=== PATIENT | male | born 1965 | race African-American/Black ===

== ENCOUNTER 2020-05-26 09:37 | Emergency (ER) | payer OTHER ==
[~2020-05-26] VITALS: Ht 172.7 cm; Wt 74.8 kg
[2020-05-26 10:45] LABS: ABSOLUTE NEUTROPHILS 6.4 thou/uL (1.4-8.2); BASOPHILS 0.5 % (0.0-2.0); EOSINOPHILS 2.5 % (0.0-3.0); HEMATOCRIT 41.3 % (42.0-52.0); HEMOGLOBIN 13.8 gm/dL (14.0-18.0); LYMPHOCYTES 20.9 % (24.0-44.0); MCH 33.5 pg (26.0-34.0); MCHC 33.5 g/dL (28.0-37.0); MCV 100.1 fL (80.0-100.0); PLATELET COUNT 243 thou/uL (150-400); POLYS 69.1 % (36.0-66.0); RBC 4.13 mil/uL (4.50-6.00); RDW 13.1 % (10.5-14.5); WBC 9.3 thou/uL (4.0-11.0)
[2020-05-26 10:56] LABS: CALCIUM 9.3 mg/dL (8.5-10.1); POTASSIUM 4.2 mmol/L (3.5-5.1)
[2020-05-26 11:04] LABS: ALBUMIN 3.8 g/dL (3.4-5.0); TOTAL BILIRUBIN 0.8 mg/dL (0.2-1.0); TOTAL PROTEIN 7.5 g/dL (6.4-8.2)
[2020-05-26 13:11] LABS: URINE BILIRUBIN NEGATIVE (Negative); URINE BLOOD NEGATIVE (Negative); URINE CLARITY CLEAR; URINE COLOR YELLOW; URINE GLUCOSE-RANDOM* NEGATIVE (Negative); URINE KETONES NEGATIVE (Negative); URINE LEUKOCYTES-REFLEX NEGATIVE (Negative); URINE NITRITE-REFLEX NEGATIVE (Negative); URINE PROTEIN (DIPSTICK) NEGATIVE (Negative); URINE UROBILINOGEN 0.2 E.U./dl (0.2-1.0)
[2020-05-26 14:17] VITALS: BP 105/55
== END 2020-05-26 14:18 | disposition home or self-care (01) ==
LOC: ER 09:37
PROVIDERS: Emergency Medicine
DX: K59.00 Constipation, unspecified (principal); F17.210 Nicotine dependence, cigarettes, uncomplicated

== ENCOUNTER → 2020-08-09 | Outpatient (CLI) | payer OTHER | LOC: LAB 10:59 | PROVIDERS: ATTEND Specialist | DX: Z20.828 Contact with and (suspected) exposure to other viral communicable diseases (principal) ==

== ENCOUNTER → 2020-08-11 | Outpatient (CLI) | payer OTHER ==
[~2020-08-11] VITALS: Ht 172.7 cm; Wt 73.0 kg
--- NOTE | 2020-08-13 14:29 | P ---
[facility] [place] [address] PROCEDURE REPORT Name: ISAIAH PRITCHARD [id number] Admission: 08/11/20 Attend Phys: Emiliano Fernandez Discharge: Date of : 67 Report #: [id number] THIS REPORT FOR: cc: FAM - No family physician/PCP FAM - Family physician unknown Emiliano Villagomez MD ~ DATE OF SERVICE: 08/11/2020 PROCEDURE PERFORMED: Upper endoscopy with biopsies. HISTORY OF PRESENT ILLNESS: The patient is a 55-year-old male with a history of intermittent nausea, vomiting, hematemesis. Reportedly, he had a possible diagnosis of an ulcer as a child. He has not taken any NSAIDs. He does report weight loss of approximately 17 pounds over the last few months. He denies any melanotic stools currently. No previous history of colonoscopy. No family history of colon cancer. DESCRIPTION OF PROCEDURE: The risks and benefits of the procedure were explained to the patient, those risks including but not limited to bleeding, perforation and the risk of sedation. He understood these risks and gave informed consent. Sedation was given using propofol per anesthesia. Next, using a standard Olympus upper endoscope, the scope was placed in the patient's mouth and advanced under direct vision through the esophagus, stomach, and into the second portion of the duodenum. The esophagus was normal throughout. The GE junction was normal. There was some mild gastritis noted in the body of the stomach. No evidence of ulcerations or erosions. No evidence of bleeding was noted. Biopsies were obtained to rule out H. pylori. The pylorus was normal and patent. The duodenal bulb, first and second portion were all normal. The scope was then withdrawn and the procedure terminated. The patient tolerated the procedure well. IMPRESSION: 1. Gastritis. No evidence of bleeding. 2. Otherwise, normal upper endoscopy. RECOMMENDATIONS: 1. Await biopsy results. 2. Recommend daily PPI therapy trial. 3. Consider the possibility of intermittent nausea and vomiting causing a Valerie-Ruelas tear, which is now healed. Again, would recommend PPI therapy to see if this is beneficial. 4. The patient needs routine screening colonoscopy at some point. [facility] [address] [place] [address] PROCEDURE REPORT Name: ISAIAH PRITCHARD Melani Room #: REG Tiny Chau#: [id number] Admission: 08/11/20 Attend Phys: Emiliano Fernandez Discharge: Date of : 67 Report #: [id number] Thank you for allowing me to participate in his care. <ELECTRONICALLY SIGNED> By: Emiliano Villagomez MD 08/13/20 1429 1053 09 Emiliano Villagomez MD /nt
--- NOTE | 2020-08-15 17:06 | PATH ---
[facility] [address] [place] [address] PATHOLOGY RPT PROCEDURE Name: ISAIAH PRITCHARD Melani Room #: REG [facility] Glo.#: [id number] Admission: 08/11/20 Date of : 67 Discharge: Report #: [id number] Path Case #: [id number] [facility] Accession Number: [id number] . 01 Material submitted: . stomach - BIOPSY GASTRITIS . 01 Clinical history: . VOMITING BLOOD, GASTRITIS . 02 Diagnosis: Gastric mucosa, gastritis R/O H. pylori, endoscopic biopsy: - Mild reactive gastropathy. - Negative for intestinal metaplasia or atrophy. - Negative for Helicobacter pylori (properly controlled immunohistochemical stain performed). (IUV:konstantin; 08/15/2020) QMS 08/15/2020 1300 Local . 02 Electronically signed: . Jessica Okeefe MD, Pathologist NPI- [id number] . 01 Gross description: . The specimen is received in formalin, labeled "Tobi, Vincent, BX gastritis" and consists of 4 fragments of pink-callaway tissue measuring between 0.3 x 0.2 cm and 0.7 x 0.2 cm which are entirely submitted in A1. (SDY; 08/14/2020) SYU/SYU 08/14/2020 1334 Local . 02 Pathologist provided ICD-10: K31.9 . 02 CPT . 252773, E87052 Specimen Comment: A courtesy copy of this report has been sent to [phone] Specimen Comment: Report sent to Performed at: [address], [place], [place] [id number] MD Saúl Do MD Phone: [phone] Performed at: [address] [id number] MD Jessica Okeefe MD Phone: [phone]
== END | disposition home or self-care (01) ==
LOC: GI 08:24
PROVIDERS: ATTEND Specialist
DX: R11.2 Nausea with vomiting, unspecified (principal); R63.4 Abnormal weight loss; K31.9 Disease of stomach and duodenum, unspecified; K29.70 Gastritis, unspecified, without bleeding; F17.210 Nicotine dependence, cigarettes, uncomplicated; Z98.890 Other specified postprocedural states; Z79.899 Other long term (current) drug therapy; Z85.46 Personal history of malignant neoplasm of prostate
CPT/HCPCS: 62110; 62900

== ENCOUNTER 2020-10-05 01:13 | Inpatient (IN) | payer OTHER ==
[~2020-10-05] VITALS: Ht 172.7 cm; Wt 70.0 kg
[2020-10-05] VITALS (22 sets, daily range): BP systolic 97–137; BP diastolic 51–117
--- NOTE | 2020-10-05 01:35 | NUR ---
I WAS IN THE ROOM WHEN DR NULL WAS ASSESSING PATIENT. HE SAID "THE VOICES ARE TELLING ME I HAVE TO KILL EVERYONE AND EVERYTHING." WHEN ASKED IF HE WOULD DO WHAT THE VOICES TOLD HIM TO DO, HE SAID "I HAVE TO BECAUSE THE VOICES ARE TELLING ME TO DO IT." NURSE ASSIGNED TO PATIENT AND NURSING ELEVATED WORK PLATFORM OPERATOR LYNDA WAS NOTIFIED OF ABOVE.
[2020-10-05 02:05] LABS: ABSOLUTE NEUTROPHILS 4.6 thou/uL (1.4-8.2); BASOPHILS 0.6 % (0.0-2.0); EOSINOPHILS 2.5 % (0.0-3.0); HEMATOCRIT 41.6 % (42.0-52.0); MCH 33.8 pg (26.0-34.0); MCHC 33.5 g/dL (28.0-37.0); MCV 100.9 fL (80.0-100.0); PLATELET COUNT 297 thou/uL (150-400); POLYS 69.9 % (36.0-66.0); RBC 4.13 mil/uL (4.50-6.00); RDW 12.8 % (10.5-14.5); WBC 6.5 thou/uL (4.0-11.0)
[2020-10-05 02:24] LABS: ANION GAP 13 mmol/L (7-16); BUN 12 mg/dL (7-18); CALCIUM 8.7 mg/dL (8.5-10.1); CHLORIDE 100 mmol/L (98-107); CO2 25 mmol/L (21-32); GLUCOSE 100 mg/dL (74-106); POTASSIUM 3.8 mmol/L (3.5-5.1); SODIUM 138 mmol/L (136-145)
[2020-10-05 02:27] LABS: ALBUMIN 3.8 g/dL (3.4-5.0); DIRECT BILIRUBIN < 0.1 mg/dL (<0.1-0.2); SALICYLATE 3.7 mg/dL (2.8-20.0); SGOT 45 U/L (15-37); SGPT 109 U/L (16-63); TOTAL BILIRUBIN 0.6 mg/dL (0.2-1.0); TOTAL PROTEIN 7.8 g/dL (6.4-8.2)
[2020-10-05 02:28] LABS: AMP/METHAMP Negative (Negative); BARBITURATES Negative (Negative); BENZODIAZEPINES Negative (Negative); COCAINE POSITIVE (Negative); METHADONE Negative (Negative); OPIATES Negative (Negative); PCP Negative (Negative)
--- NOTE | 2020-10-05 04:20 | NUR ---
0325 PT ARRIVED FROM ER VIA CART. PT CONNECTED TO ICU MONITOR AND ASSESSED PER ICU PROTOCOL. RAW FINISH MILL OPERATOR RONDA AT BEDSIDE. PT REPORTS ACTIVELY WANTING TO HARM HIMSELF. SI 1:1 SITTER IN ROOM WITH PT. ROOM STRIPPED OF ALL UNNECESSARY ITEMS. SEIZURE PRECAUTIONS IN PLACE. 0339 [place] POISON CONTROL CALLED AND WERE UPDATED ON PTS CONDITION AND VITAL SIGNS.
--- NOTE | 2020-10-05 07:25 | EKG ---
[address] [address] ELECTROCARDIOGRAM REPORT Name: ISAIAH PRITCHARD Room #: 242-P ADM IN M.R.#: [id number] Admission: 10/05/20 Attend Phys: Isabelle Maguire Discharge: Date of : 67 Report #: [id number] [facility] ED Test Date: 2020-10-05 Test Time: 01:43:29 Pat Name: ISAIAH PRITCHARD Department: Room: 242 Gender: M Customer Project Manager: MELANIE : 1965 Requested By: Dorothy Day Order Number: [id number] MD: Ashtuosh Vick Measurements Intervals [place] Rate: 75 P: 66 MA: 157 QRS: 6 QRSD: 97 T: 33 QT: 417 QTc: 466 Interpretive Statements Sinus rhythm No previous ECG available for comparison Electronically Signed On 10-05-2020 7:25:25 ANODE WORKER by Ashutosh Vick [email or web address] <ELECTRONICALLY SIGNED> By: Ashutosh Vick MD, [facility] 10/05/20 0725 0143 0143 Ashutosh Vick MD, FACC /EPI
--- NOTE | 2020-10-05 10:38 | NUR ---
chart review, pt has sitter in room. unable to visit with catalina. per chart he has been to [facility] for tx, and home only for 2 weeks before coming here. cm called and spoke with his gian # [phone], she reported " he had addiction for 30 years. only at [facility] for week, and home for couple of weeks then found him. hx drug and alcohol abuse. 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 he independent. manage his medication but the he just took all them from her and took them. just saw pcp for 1st time last week at [facility] Cotton. no dme, still drives. wanting him to go inpt tx again, i was told you will send him for tx"/ gian. dr carlos consult. will cont following as needed for dc needs.
[2020-10-05] MEDS ORDERED: WELLBUTRIN XL150 MG PO (11:49)
[2020-10-05] MEDS ORDERED: OMEPRAZOLE 20 M20 M1 PO (11:50)
[2020-10-05] MEDS ORDERED: ZYPREXA7.5 MG PO (11:50)
--- NOTE | 2020-10-05 16:33 | NUR ---
3050 SPOKE W/ NEHEMIAH. UPDATED ON PT STATUS. STATED SHE'D LIKE TO BE UPDATED BY A PHYSICIAN WHEN POSSILE REGARDING PLAN FOR PATIENT.
--- NOTE | 2020-10-05 19:16 | NUR ---
assumed care of pt 0700. pt awake and oritented. no complaints of pain. awaiting evaluation from Dr. Barraza. no bm. vss. regular diet. denied any suicidal ideation when asked today.
--- NOTE | 2020-10-05 23:38 | NUR ---
ASSUMED PT CARE AT 1900. VSS. PT A&0X4. SPOKE TO PT, ASKED HIM WHY HE TRIED TO COMMIT SUCIDE, PT STATED HE HAS PROSTATE CA, AND GOING THROUGH RADIATION SEVRAL TIMES A WEEK, HIS WEDDING ANNIVERSARY IS COMING UP AND HE IS DISAPOINTED HE WOULDNT NOT BE BALE TO MAKE LOVE TO HIS BECAUSE OF HIS PROSTATE ISSUES. CALLED AT 2216, UPDATED BY RN ON PT'S STATUS. PT IS STABLE, WILL CONTINUE TO MONITOR PER POC.
[2020-10-06] VITALS (22 sets, daily range): BP systolic 86–123; BP diastolic 24–85
[2020-10-06 05:34] LABS: ABSOLUTE NEUTROPHILS 3.8 thou/uL (1.4-8.2); BASOPHILS 0.4 % (0.0-2.0); EOSINOPHILS 5.1 % (0.0-3.0); HEMATOCRIT 40.8 % (42.0-52.0); HEMOGLOBIN 13.5 gm/dL (14.0-18.0); LYMPHOCYTES 19.1 % (24.0-44.0); MCH 33.5 pg (26.0-34.0); MCV 101.6 fL (80.0-100.0); MONOCYTES 7.9 % (1.0-8.0); PLATELET COUNT 250 thou/uL (150-400); POLYS 67.5 % (36.0-66.0); RBC 4.02 mil/uL (4.50-6.00); RDW 13.2 % (10.5-14.5); WBC 5.6 thou/uL (4.0-11.0)
--- NOTE | 2020-10-06 13:33 | NUR ---
PT CALM AND COOPERATIVE THIS AM. HE REPORTS THAT HE IS HEARING VOICES TODAY. PT STATES HE IS AGREEABLE TO GOING BACK TO [place] ON DISCHARGE VOLUNTARILY. PER DR FISHER'S NOTE PT OK TO SPEAK WITH ON PHONE. PHONE GIVEN TO PATIENT AND PT CONVERSING WITH HIS .
--- NOTE | 2020-10-06 13:57 | NUR ---
cm visited with pt at bedside, cont to wear face mask and shield during visit. education on inpt pysch, he stated " just ready to get out of here but guess [facility] will be ok, since i already know some of the nurses there"/catalina. cm spoke with eulalia chiu and faxed referral. will cont following as needed for dc needs. gian notified as well and agrees with dcp. " would like to know if any place give tx more that 7 days and then dc pt?"/ gian.
--- NOTE | 2020-10-06 18:38 | NUR ---
PT AGREEABLE WITH PLAN OF INPATIENT PSYCH WHEN BED AVAILABLE. SPOKE WITH PT'S AND UPDATED HER X5 TODAY. PT IS TEARFUL AND STATES HE IS ANGRY BC HE CANT GO HOME BUT UNDERSTANDS WHY. PLAN FOR TRANSFER TO TELE BED WHEN ROOM AVAILABLE. WILL CONTINUE TO MONITOR PT.
--- NOTE | 2020-10-06 19:31 | NUR ---
REPORT CALLED TO JERRY KOO 4W. PT TO TRANSFER TO 462. PT'S INFORMED OF TRANSFER.
[2020-10-07 10:57] VITALS: BP 107/75
[2020-10-07 15:51] VITALS: BP 103/71
[2020-10-07 19:08] VITALS: BP 110/70
--- NOTE | 2020-10-07 19:09 | NUR ---
Assmed pt care this am, VS stable on SI precuations 1:1 sitter at the bedside. POC followed with no signs or verbalizations of distress noted, had several calls from the . No voices were hear as of this shift, endorsed to the night nurse.
--- NOTE | 2020-10-08 01:59 | NUR ---
VSS-AFEBRILE. 1:[address] THROUGH NIGHT. DENIES HAVING FEELINGS OF HURTING SELF OR OTHERS AT THIS TIME. DENIES HAVING ANY AUDITORY OR VISUAL HALLUCINATIONS. RESTED WELL. CALLS APPROPRIATELY FOR ANY NEEDED ASSISTANCE.
[2020-10-08 05:17] VITALS: BP 99/61
--- NOTE | 2020-10-08 14:54 | NUR ---
ASSUMED CARE OF PATIENT AT 0700. ASSESSMENT CHARTED. MEDS ADMINISTERED PER EMAR. VSS. 1:[address] AT ALL TIMES. PATIENT IS A&OX4 AND COMMUNICATES NEEDS. NO VA/PA/SI/HI OBSERVED OR VOICED FROM PATIENT. SPOUSE CALLED MULTIPLE TIMES. PATIENT WAS GIVEN A PHONE TO SPEAK W HER BUT DECLINED TO SPEAK. PATIENT ASLEEP AND WATCHING TV MOST OF SHIFT. NO SEIZURE ACTIVITY NOTED. PATIENT VERBALIZED NO OTHER NEEDS. WILL CONTINUE TO MONITOR AND FOLLOW PLAN OF CARE.
[2020-10-08 19:14] VITALS: BP 119/72
[2020-10-09 03:51] VITALS: BP 113/80
--- NOTE | 2020-10-09 04:37 | NUR ---
ASSUMED CARE OF PT AT 1900HRS. PT IS AOX4 AND LETS NEEDS BE KNOWN. FALL PRECAUTION IN PLACE. 1:[address] FOR SI/HI. PT DENIED PAIN, NAUSEA, SOA, AND SI THIS SHIFT. PT DID MENTION THAT HE WANTS TO HURT FOR TALKING TO HIS . ASSESSMENT CHARTED. PT RAN SR ON TELE. PT WAS ABLE OT GET COMFORTABLE AND SLEEP PART OF THE SHIFT. VSS AND NO S/S OF ACUTE DISTRESS. WILL CONTINUE TO MONITOR FOR CHANGES.
[2020-10-09 07:53] VITALS: BP 118/71
--- NOTE | 2020-10-09 15:16 | NUR ---
CM MET WITH PT AT BEDSIDE THIS DAY. PT APPEARED TO A&O X4. CM ROLE INTRODUCED. CM INDICATED THAT CARE TEAM ARE STILL RECOMMENDING INPATIENT PSYC PLACEMENT. PT INDICATED HE WAS STILL VOLUNTARY. CM CALLED THE FOLLOWING: [facility] [phone] SPOKE WITH ERIK IN ADMISSIONS FAXED CLINICAL INFOR FOR REVIEW [facility] [phone] AT [facility] [phone] SPOKE WITH SOMEONE IN ADMISSIONS FAXED REFERRAL OVER FOR REVIEW FOR POSSIBLE ADMISSION. [facility] [place] [phone] or [phone] CM CALLED [facility] AND LEFT NUMBER FOR CALL BACK [phone] WANT NEGATIVE PCR COVID TEST AND WANT HOSPITALIST TO DOCUMENT PT IS MEDICALLY STABLE TO DISCHARGE TO INPATIENT PSYC copy and call report to number giving from accepting [facility].
--- NOTE | 2020-10-09 15:57 | NUR ---
CM MET WITH PT AT BEDSIDE THIS DAY. PT APPEARED TO A&O X4. CM ROLE INTRODUCED. CM INDICATED THAT CARE TEAM ARE STILL RECOMMENDING INPATIENT PSYC PLACEMENT. PT INDICATED HE WAS STILL VOLUNTARY. CM CALLED THE FOLLOWING: [facility] [phone] SPOKE WITH ERIK IN ADMISSIONS FAXED CLINICAL INFO FOR REVIEW THEY CALLED BACK AND COMPLETED COVID SCREENING.INDICATED THEY DONE REQUIRE A COVID TEST. STATED NURSE WILL REVIEW AND MAY CALL BACK IF ACCEPTING. [facility] [place] [phone] AT [facility] [phone] SPOKE WITH SOMEONE IN ADMISSIONS FAXED REFERRAL OVER FOR REVIEW FOR POSSIBLE ADMISSION. [facility] [phone] or [phone] AT [facility], ONLY HAVE FEMALE [place] BEDS [phone] WANT NEGATIVE PCR COVID TEST AND WANT HOSPITALIST TO DOCUMENT PT IS MEDICALLY STABLE TO DISCHARGE TO INPATIENT PSYC copy and call report to number giving from accepting [facility]. CM NOTIFIED PT OF PROGRESS. CM COMPLETED [facility] FORM AND PLACE IN WALL WIND SITE MANAGER. CM REQUESTED CHART COPY AND NOTIFIED NURSE OF PROGRESS.
--- NOTE | 2020-10-09 19:37 | NUR ---
ASSUMED CARE OF PATIENT AT SHIFT NA. ASSESSMENT CHARTED. MEDS ADMINISTERED PER EMAR. VSS. PATIENT IS A&OX4 AND ABLE TO MAKES NEEDS KNOWN. NO BEHAVIORAL ISSUES; DENIES SI/HI. NO VA/PA NOTED. PATIENT CONTINUES TO HAVE A SITTER 1:1 AT ALL TIMES. PATIENT SPEAKING ON PHONE MULTIPLE TIMES. NEHEMIAH CALLED FOR UPDATES AND REQUEST TO SPEAK TO PATIENT MULTIPLE TIMES. PATIENT STEADY ON FEET; APPETITE ADEQUATE. BM TODAY. COVID TEST COMPLETE FOR PLACEMENT. SEE CM NOTES FOR INSTRUCTIONS ON TRANSPORT IN EVENT OF AFTER HOURS ACCEPTANCE. PATIENT VOICED NO FURTHER NEEDS. WILL ENDORSE TO NOC. JERRY.
[2020-10-09 21:00] VITALS: BP 100/62
--- NOTE | 2020-10-10 02:27 | NUR ---
PATIENT SLEPT EARLIER IN EVENING FOR ABOUT AN HOUR. HE THEN HAS BEEN UP AND WATCHING TV. HE HAS BEEN PLEASANT AND COOPERATIVE AND UPBEAT. PT DENIES SI/AVH. HE DOES STATE THERE IS ONE PERSON HE WOULD LIKE TO HURT BUT DID NOT SAY WHO. HE STATES HE WILL EVENTUALLY CALM DOWN BUT IT IS A PROCESS. HE IS AWAITING TRANSFER TO [facility] FOR FURTHER TREATMENT. PATIENT DOES NOT HAVE IV ACCESS AT THIS TIME. HE DOES HAVE REDDENED TENDER AREA AT LEFT ANTECUBITAL FROM OLD IV THAT WAS DC'D YESTERDAY. ICE NEYDA APPLIED TO AREA FOR COMFORT. PAIN WAS 4/5. RELIEF WITH ICE NEYDA. PATIENT'S LAST BM WAS 10/09/20. PATIENT APPEARS TO SLEEPING AT THIS TIME. HE FELL ASLEEP AT 0130. PT IS ORIENTED X 4. ASSESSMENT WNL. COVID PCR IS PENDING AT THIS TIME. 1:1 SITTER WITH PATIENT IN ROOM. BED IN LOW POSITION. FALL RISK MONITORING. URINAL AT BEDSIDE. CONTINUING TO MONITOR.
[2020-10-10 08:40] VITALS: BP 135/86
--- NOTE | 2020-10-10 14:31 | NUR ---
[facility] CALLED CM AT 1:34 AM AND INDICATED THAT THEY DIDN'T HAVE A BED OPEN TO ACCEPT PT AT THAT TIME. CARE TEAM ARE STILL RECOMMENDING INPATIENT PSYC PLACEMENT. PT INDICATED HE WAS STILL VOLUNTARY BUT IS GETTING TIRED OF BEING HERE. CM CALLED THE FOLLOWING: [facility] [phone] SPOKE WITH SOMEONE IN ADMISSIONS FAXED UPDATED CLINICAL INFO INCLUDING NEGATIVE COVID TEST FOR REVIEW THEY CALLED BACK AND COMPLETED COVID SCREENING.STATED NURSE WILL REVIEW AND MAY CALL BACK IF ACCEPTING. [facility] [place] [phone] CALLED AT 2:36 TAKING PT'S FROM WITH IN RIGHT NOW CAN TRY BACK LATER. [facility] [phone] 2:40 SPOKE WITH SOMEONE IN ADMISSIONS WHO SAID THEY HAD SOME HIGHER AQUITY BEDS OPEN AT THIS TIME. CM FAXED REFERRAL WITH UPDATES OVER FOR REVIEW FOR POSSIBLE ADMISSION. [facility] [place] [phone] or [phone] CALLED BED PAGER 2:[phone] CM FAXED CLINICAL WITH NEGATIVE PCR COVID TEST AND HOSPITALIST PROG NOTE FROM YESTERDAY INDICATING THAT PT IS MEDICALLY STABLE TO [place]. THEY WANT A NEW PROG NOTE FROM TODAY CM NOTIFIED PHYSICIAN NO PROG NOTE AT TIME OF THIS NOTE. THEY SENT OVER A RELEASE FOR PT TO SIGN TO LOOK REFERRAL OVER. CM HAD IT SIGNED BY PT. copy and call report to number giving from accepting [facility]. CM NOTIFIED PT OF PROGRESS. CM COMPLETED KCFD FORM AND PLACE IN WALL FULL DECATOR OPERATOR. CM REQUESTED CHART COPY AND NOTIFIED NURSE OF PROGRESS.
--- NOTE | 2020-10-10 17:02 | NUR ---
Patient complains of left arm , the area around and above the AC, was worse than yesterday, red, painful, swelling. Dr. Sawyer stated that he would give Tylenol for the pain, if it continued to become worse, he would have ultrasound.
--- NOTE | 2020-10-10 17:06 | NUR ---
The patient's Elba ([phone]) stated that the patient could have a place covered by her insurance, asking to talk to the "therapist", the one who is responsible looking for a place for the patient to go to. The staff told Ms. Pinedo ([phone]) about it.
--- NOTE | 2020-10-10 17:13 | NUR ---
Patient asked for medication for anxiety, Dr. Barraza paged, awaiting for response.
[2020-10-10 17:38] VITALS: BP 138/56
--- NOTE | 2020-10-10 18:03 | NUR ---
[facility] and Emar, Ms. Pinedo asked the staff to fax these two things to them. Fax number: [phone]; number: [phone].
--- NOTE | 2020-10-10 18:23 | NUR ---
The nurse asked people in different nursing station, nobody knows how to pring the emar and vital signs properly, the staff used "PrtScn", the letters were very small. The staff will pass it on to the night nurse. It might have to be done tomorrow.
[2020-10-10 20:03] VITALS: BP 119/82
--- NOTE | 2020-10-10 23:17 | NUR ---
EMAR and vital signs faxed over to [facility]. Verified that fax was received with Julee whom stated they would get orders for patient and most likely accept, but that there would not be a bed available until tomorrow afternoon. Will pass this information along to patient.
--- NOTE | 2020-10-11 03:10 | NUR ---
RECEIVED CALL FROM ANGELINA NAQVI STATING THAT LONG PATIENT HAD NO MEDICAL PROBLEMS THEY WERE WILLING TO ACCEPT HIM. PHONE NUMBER FOR REPORT PROVIDED.
[2020-10-11 05:45] LABS: HEMATOCRIT 38.6 % (42.0-52.0); HEMOGLOBIN 13.1 gm/dL (14.0-18.0); MCH 33.7 pg (26.0-34.0); MCV 99.1 fL (80.0-100.0); RBC 3.89 mil/uL (4.50-6.00); RDW 12.7 % (10.5-14.5)
[2020-10-11 06:03] LABS: ALBUMIN 3.1 g/dL (3.4-5.0); CALCIUM 9.1 mg/dL (8.5-10.1); CREATININE 1.3 mg/dL (0.7-1.3); TOTAL BILIRUBIN 0.5 mg/dL (0.2-1.0); TOTAL PROTEIN 6.5 g/dL (6.4-8.2)
--- NOTE | 2020-10-11 06:44 | NUR ---
Pt. rested quietly at intervals during the night when checked on during frequent rounds. No suicidal ideations verbally expressed to this nurse. Continues to have sitter at the bedside. Awaiting placement and warehouse receiving clerk spoke to Rene gamboa. and they told her they had a bed available.
[2020-10-11 09:11] VITALS: BP 113/77
[2020-10-11] MEDS ORDERED: ZYPREXA 5 MG TAB5 M2 PO (12:25)
--- NOTE | 2020-10-11 14:17 | NUR ---
INPATIENT PSYC [facility] CALLED THIS AM AND INDICATED THAT THEY WERE ABLE TO ACCEPT PT. CM NOTIFIED PT, DR. FISHER, PT'S SPOUSE, AND HOSPITALIST. CM SPOKE WITH EDUARDO AT AND PROVIDED CLINICAL INFO THEY NEEDED. [facility] ARRANGED THEY ARRIVED AT APPROXIMATLY 1400. SPOUSE AWARE. NO OTHER CM INTERVENTION INDICATED. CASE CLOSED.
--- NOTE | 2020-10-11 16:13 | NUR ---
Patient left for [facility], the staff talked to nurse, Maxwell, about the patient complaining of the pain in his left upper arm. The staff checked the arm, the area the patient complained of pain looks better than yesterday although the patient kept saying felt worse. the reddness was better, the swelling was better.
== END 2020-10-11 13:22 | DRG 917 ==
LOC: ER 01:13 → 4W 02:47 → EROBS 02:47 → ICU 02:47 → 4W 10-06 19:42
PROVIDERS: Emergency Medicine; Hospitalist; Nurse Practitioner Family; ADMIT Hospitalist; ATTEND Hospitalist
DX: T43.292A Poisoning by other antidepressants, intentional self-harm, initial encounter (principal); G92 Toxic encephalopathy; R45.851 Suicidal ideations; F10.129 Alcohol abuse with intoxication, unspecified; R45.850 Homicidal ideations; T43.592A Poisoning by other antipsychotics and neuroleptics, intentional self-harm, initial encounter; F17.210 Nicotine dependence, cigarettes, uncomplicated; Y90.9 Presence of alcohol in blood, level not specified; F41.9 Anxiety disorder, unspecified; F32.9 Major depressive disorder, single episode, unspecified; K29.70 Gastritis, unspecified, without bleeding; T47.1X2A Poisoning by other antacids and anti-gastric-secretion drugs, intentional self-harm, initial encounter; R74.01 Elevation of levels of liver transaminase levels; Z20.822 Contact with and (suspected) exposure to COVID-19; Z85.46 Personal history of malignant neoplasm of prostate; Z92.3 Personal history of irradiation; Y92.89 Other specified places as the place of occurrence of the external cause
CPT/HCPCS: 10045; 10078

== ENCOUNTER 2021-01-24 07:01 | Emergency (ER) | payer OTHER ==
[~2021-01-24] VITALS: Ht 172.7 cm; Wt 79.4 kg
[~2021-01-24 07:01] MED LIST: OMEPRAZOLE 20 M20 M1 PO; WELLBUTRIN XL150 MG PO; ZYPREXA 5 MG TAB5 M2 PO; ZYPREXA7.5 MG PO
[2021-01-24] MEDS ORDERED: BUSPIRONE HCL7.5 MG PO (07:07)
[2021-01-24] MEDS ORDERED: TRAZODONE HCL50 MG PO (07:07)
[2021-01-24 07:34] LABS: ABSOLUTE NEUTROPHILS 5.6 thou/uL (1.4-8.2); BASOPHILS 0.7 % (0.0-2.0); EOSINOPHILS 2.8 % (0.0-3.0); HEMATOCRIT 40.2 % (42.0-52.0); HEMOGLOBIN 13.6 gm/dL (14.0-18.0); LYMPHOCYTES 9.8 % (24.0-44.0); MCHC 33.8 g/dL (28.0-37.0); MCV 97.7 fL (80.0-100.0); MONOCYTES 7.9 % (1.0-8.0); PLATELET COUNT 199 thou/uL (150-400); POLYS 78.8 % (36.0-66.0); RBC 4.11 mil/uL (4.50-6.00); RDW 13.2 % (10.5-14.5); WBC 7.1 thou/uL (4.0-11.0)
[2021-01-24 07:43] LABS: ANION GAP 9 mmol/L (7-16); BUN 9 mg/dL (7-18); CHLORIDE 104 mmol/L (98-107); CO2 26 mmol/L (21-32); CREATININE 1.2 mg/dL (0.7-1.3); GLUCOSE 113 mg/dL (74-106); SODIUM 139 mmol/L (136-145)
[2021-01-24 07:53] LABS: ALBUMIN 3.6 g/dL (3.4-5.0); SGOT 19 U/L (15-37); SGPT 35 U/L (16-63); TOTAL BILIRUBIN 0.9 mg/dL (0.2-1.0); TOTAL PROTEIN 7.4 g/dL (6.4-8.2); TROPONIN-I <0.06 ng/mL (<0.06)
--- NOTE | 2021-01-24 09:15 | EKG ---
[address] [address] ELECTROCARDIOGRAM REPORT Name: ISAIAH PRITCHARD [id number] Admission: 01/24/21 Attend Phys: Discharge: Date of : 67 Report #: [id number] [facility] ED Test Date: 2021-01-24 Test Time: 07:10:59 Pat Name: ISAIAH PRITCHARD Department: Room: Gender: Field Organizer: SRAVANI : 1965 Requested By: Justino Shetty Order Number: [id number] MD: Ashutosh Vick Measurements Intervals [place] Rate: 75 P: 62 NV: 137 QRS: 8 QRSD: 90 T: 28 QT: 371 QTc: 415 Interpretive Statements Sinus rhythm Compared to ECG 10/05/2020 01:43:29 No significant changes Electronically Signed On 01-24-2021 9:15:48 CDT by Ashutosh Vick [email or web address] <ELECTRONICALLY SIGNED> By: Ashutosh Vick MD, [facility] 01/24/21 0915 0710 0710 Ashutosh Vick MD, FACC /EPI
[2021-01-24 10:44] VITALS: BP 116/75
== END 2021-01-24 10:44 | disposition home or self-care (01) ==
LOC: ER 07:01
PROVIDERS: Emergency Medicine
DX: J06.9 Acute upper respiratory infection, unspecified (principal); F17.210 Nicotine dependence, cigarettes, uncomplicated; Z85.46 Personal history of malignant neoplasm of prostate

== ENCOUNTER 2021-01-30 08:56 | Emergency (ER) | payer OTHER ==
[~2021-01-30] VITALS: Ht 172.7 cm; Wt 79.4 kg
[~2021-01-30 08:56] MED LIST changes: +BUSPIRONE HCL7.5 MG PO; +TRAZODONE HCL50 MG PO
[2021-01-30] MEDS ORDERED: PREDNISONE 20 M20 MG PO (13:14)
[2021-01-30 13:43] VITALS: BP 118/77
== END 2021-01-30 13:43 | disposition home or self-care (01) ==
LOC: ER 08:56
DX: T78.49XA Other allergy, initial encounter (principal); T78.3XXA Angioneurotic edema, initial encounter; F14.10 Cocaine abuse, uncomplicated; F17.210 Nicotine dependence, cigarettes, uncomplicated; Z79.899 Other long term (current) drug therapy; X58.XXXA Exposure to other specified factors, initial encounter